=== PATIENT | male | born 1985 | race Caucasian/White ===

== ENCOUNTER 2016-05-08 18:34 | Emergency (ER) | payer OTHER ==
[2016-05-08 18:57] VITALS: PULSE 68; RESP 18; O2SAT 96
--- NOTE | 2016-05-08 19:15 | UCPHY ---
H & P Patient Type: Established Chief Complaint Nursing Narrative: Scratchy throat, runny nose Time Seen by Provider: 05/08/16 19:03 HPI/ROS: Chief complaint: Scratchy throat, runny nose HPI: 30-year-old male presenting with 2 days of runny nose, congestion, scratchy throat. He has minimal pain with swallowing. No difficulty breathing. No fevers or chills. No body aches. No nausea vomiting or diarrhea. Patient states that his was diagnosed with influenza on a positive swab several days ago in his coming in for evaluation. She was started on Tamiflu, however she does have a history of asthma. He denies any past medical history. No medications. No allergies. ROS: 10 point Review of Systems is negative except as noted in the HPI. Physical exam: Gen: Awake, Alert, No Distress HEENT: Nose: no rhinorrhea Eyes: PERRLA, EOMI Mouth: Moist mucosa, mild pharyngeal erythema without exudate or swelling. Neck: Supple, no JVD, no lymphadenopathy Chest: nontender, lungs clear to auscultation Heart: S1, S2 normal, no murmur Abd: Soft, non-tender, no guarding Back: no CVA tenderness, no midline tenderness Ext: no edema, non-tender Skin: no rash Neuro: CN II-XII intact, Sensation grossly intact, Strength 5/5 in bilateral upper and lower extremities - Personal History Current Tetanus/Diphtheria Vaccine: Yes Current Tetanus Diphtheria and Acellular Pertussis (TDAP): Yes Tetanus Vaccine Date: 2011 - Medical/Surgical History Hx Asthma: No Hx Chronic Respiratory Disease: No Hx Diabetes: No Hx Cardiac Disease: No Hx Renal Disease: No Hx Cirrhosis: No Hx Alcoholism: No Hx HIV/AIDS: No Hx Splenectomy or Spleen Trauma: No Other PMH: tonsilectomy - Family History Significant Family History: No pertinent family hx - Social History Smoking Status: Never smoked Constitutional: Initial Vital Signs Temperature (C) 37.1 C 05/08/16 18:52 Heart Rate 68 05/08/16 18:52 Respiratory Rate 18 05/08/16 18:52 Blood Pressure 127/84 H 05/08/16 18:52 O2 Sat (%) 96 05/08/16 18:52 O2 Delivery Mode Room Air Allergies/Adverse Reactions: No Known Allergies Allergy (Verified 05/08/16 18:51) Home Medications: Medication Instructions Recorded No Home Meds 08/11/14 Medical Decision Making ED Course/Re-evaluation: 30-year-old male with viral URI type symptoms. He was exposed fluid his however he has no chronic medical problems and would not be an appropriate candidate for Tamiflu even if he were positive. He has benign appearing at this time. Will discharge with follow up with primary care physician return for worsening. Departure - Departure Disposition: Home, Routine, Self-Care Clinical Impression: Viral upper respiratory infection Condition: Good Instructions: Viral Syndrome (ED) Additional Instructions: May take ibuprofen and acetaminophen for fever, aches and pains. Drink plenty of fluids. Wash your hands frequently with soap and water. Follow up with your primary care physician in 3-4 days if symptoms are not improving. Referrals: Silvestre Phillip MD [Primary Care Provider] - As per Instructions - PQRS PQRS Measurement: NA
[2016-05-08 19:27] VITALS: BP 124/80; TEMP 99
== END 2016-05-08 19:24 | disposition home or self-care (01) ==
LOC: CED 18:34
DX: B34.9 Viral infection, unspecified (principal)
CPT/HCPCS: 99214-PO; G0463-PO